=== PATIENT | female | born 1955 | race Caucasian/White ===

== ENCOUNTER 2017-07-08 05:28 | Day surgery (SDC) | payer BC ==
[~2017-07-08] VITALS: Ht 172.7 cm; Wt 61.2 kg
[~2017-07-08 05:28] MED LIST: CELEXA40 MG PO; KLONOPIN1 MG PO; TEMAZEPAM30 MG PO
[2017-07-08 06:12] LABS: HEMATOCRIT 51.4 % (36.0-48.0); HEMOGLOBIN 17.4 g/dL (12-16); MCH 33.9 pg (26.0-34.0); MCHC 33.9 g/dL (31.0-37.0); MCV 100.2 fL (80.0-100.0); RBC 5.13 10x6/uL (4.00-5.40); RDW 13.1 % (11.5-14.5); WBC 7.7 10x3/uL (4.8-10.8)
[2017-07-08 07:34] VITALS: BP 127/67; Ht 172.7 cm; Wt 61.2 kg
--- NOTE | 2017-07-08 07:35 | NUR ---
PATIENT LEFT ON STRETCHER FOR PROCEDURE, FARIBA.
--- NOTE | 2017-07-08 11:21 | NUR ---
1058 XRAY HERE FOR PORT CXR
--- NOTE | 2017-07-11 11:13 | OP ---
PATIENT NAME: BRISSA DUPREE MEDICAL RECORD: [id number] :51 LOCATION:D.OPS ADMISSION DATE: SURGEON: MADAN COTA MD DATE OF OPERATION: 07/08/2017 PREOPERATIVE DIAGNOSIS: History of multiple complex colon polyps. POSTOPERATIVE DIAGNOSES: History of multiple complex colon polyps with; 1. A 1.8-cm polyp that was at about 20 cm. 2. Eleven small sessile polyps ranging in size from 9 mm to 1.3 mm. These were ablated with the argon plasma pipeline technician. Two metallic clips were used at the snare polypectomy site for hemorrhage control. PROCEDURES: 1. Total colonoscopy to cecum. 2. Snare polypectomy. 3. Placement of metallic clips times 2 for hemorrhage control. 4. Argon plasma coagulation therapy to ablate 11 colon and rectal polyps. The risks, possible complications, and alternatives to the procedure were explained to the patient. She elects to proceed. ENDOSCOPIC COURSE: The patient was conveyed to the operating room electively on 07/08/2017. General anesthesia was induced by the anesthesia staff. The patient was placed in the Fernandez position. A digital rectal examination was performed. A colonoscope was inserted through the anus. It was easily advanced to the cecum. Upon withdrawal, I irrigated and aspirated extensively. The prep was adequate. The pullback was greater than 22-minute pullback. Small polyps were ablated with the argon plasma pipeline technician. There was one pedunculated polyp at 20 cm and I was able to advance an endoscopic snare. I snared the base of the polyp and utilized the coagulation setting and then the cut setting to amputate the polyp. This was placed within a bag retrieval device and was withdrawn out through the anus. I then readvanced the endoscope. I advanced it to the polypectomy site. There was some hemorrhage from the polypectomy site. This was controlled with endoscopic metallic clips times 2. There was no further bleeding. I continued to withdraw the endoscope. A total of 11 small sessile polyps were ablated with the argon plasma pipeline technician utilizing the right colon setting in the forced mode. A retroflexed view was obtained in the rectum. I then unretroflexed the scope and removed it under direct vision. I will see the patient in my office in 2-3 weeks. I will plan to turn her subsequent surveillance endoscopy care back over to her science instructor. TRANSINT:[id number] Voice Confirmation ID: [id number] DOCUMENT ID: [id number] OPERATIVE REPORT [id number] BRISSA DUPREE ROBERT MD at 1113 CC: [id number] DICTATION DATE: 07/08/17 1501 LABOR/EXCAVATOR: 07/08/17 1855 [facility] 07/08/17 [place] [id number] [place] [id number]
--- NOTE | 2017-07-11 11:13 | HP ---
PATIENT: BRISSA DUPREE MEDICAL RECORD: [id number] ACCOUNT: [id number] LOCATION:[facility] : 51 ADMISSION DATE: 07/08/17 HISTORY AND PHYSICAL EXAMINATION CHIEF COMPLAINT: Colon polyps. HISTORY OF PRESENT ILLNESS: The patient has complex colon polyps. Her complex due to the number as well as the pathology on the polyps. About 16 were ablated when the patient had a colonoscopy by Dr. Carranza recently. I am going to plan for a colonoscopy with polypectomies utilizing the argon plasma gas meter repair supervisor. The risks, possible complications, and alternatives to the procedure were explained to the patient. She elects to proceed. SOCIAL HISTORY: A [id number] smoker. PAST MEDICAL AND SURGICAL HISTORY: COPD, history of , history of right wrist fracture, history of retinal detachment. ALLERGIES: No known drug allergies. HOME MEDICINES: Celexa, temazepam, Iva, Klonopin. PHYSICAL EXAMINATION: GENERAL: The patient does not appear acutely ill. She does appear chronically ill. VITAL SIGNS: Reviewed. HEAD: External ears appear normal. EYES: Extraocular movements are intact. NECK: Trachea is midline. CHEST: No intercostal retractions. PULMONARY: Nonlabored, no stridor. ABDOMEN: Nontender. IMPRESSION: History of complex colon polyps. PLAN: Colonoscopy with polypectomy utilizing the argon plasma gas meter repair supervisor. TRANSINT:[id number] Voice Confirmation ID: [id number] DOCUMENT ID: [id number] MADAN COTA MD at 1113 CC: MAXX AGEE M.D. and MAHESH CARRANZA MD [id number] DICTATION DATE: 07/08/17 1011 NURSE OBGYN: 07/08/17 1134 [facility] 07/08/17 [place] [id number] [place] [address]
== END 2017-07-08 12:55 | disposition home or self-care (01) ==
LOC: D.OPS 05:28 → D.PAN 08:00 → D.OPS 08:00
PROVIDERS: Anesthesiology
DX: K63.5 Polyp of colon (principal); F17.200 Nicotine dependence, unspecified, uncomplicated; J44.9 Chronic obstructive pulmonary disease, unspecified; Z01.812 Encounter for preprocedural laboratory examination